=== PATIENT | male | born 1945 | race Caucasian/White ===

== ENCOUNTER 2017-12-18 13:55 | Inpatient (IN) | payer OTHER, MEDICAID ==
[2017-12-18] MEDS: ASPIRIN 81 MG TAB PO (14:18)
[2017-12-18] MEDS: NITROGLYCERIN (SL) 0.4 MG TAB SL ×3 (14:19→17:01)
[2017-12-18 14:26] LABS: ADD MAN DIFF? NO
[2017-12-18 14:27] LABS: BASOPHILS % 0.4 % (0.0-2.0); EOSINOPHILS # 0.2 10^3/ul (0.0-0.5); EOSINOPHILS % 3.2 % (0.0-7.0); HEMATOCRIT 34.4 % (42.0-52.0); HEMOGLOBIN 11.8 g/dl (14.0-18.0); LYMPHOCYTES # 2.2 10^3/ul (0.8-2.9); LYMPHOCYTES % 39.3 % (15.0-51.0); MEAN CORPUSCULAR HEMOGLOBIN 31.7 pg (29.0-33.0); MEAN CORPUSCULAR HGB CONC 34.3 g/dl (32.0-37.0); MEAN CORPUSCULAR VOLUME 92.5 fl (82.0-101.0); MEAN PLATELET VOLUME 10.3 fl (7.4-10.4); MONOCYTE # 0.5 10^3/ul (0.3-0.9); MONOCYTES % 8.2 % (0.0-11.0); NEUTROPHIL # 2.8 10^3/ul (1.6-7.5); NEUTROPHILS % 48.7 % (39.0-77.0); PLATELET COUNT 193 10^3/UL (140-415); RED BLOOD COUNT 3.72 10^6/ul (4.70-6.10); RED CELL DISTRIBUTION WIDTH 12.9 % (11.5-14.5)
[2017-12-18 14:27] LABS: WHITE BLOOD COUNT 5.7 10^3/ul (4.8-10.8)
[2017-12-18 14:46] LABS: ANION GAP 19 (8-16); BLOOD UREA NITROGEN 25 mg/dl (7-20); CALCIUM 9.4 mg/dl (8.4-10.2); CARBON DIOXIDE 24 mmol/L (21-31); CHLORIDE 102 mmol/L (97-110); CREATININE 0.99 mg/dl (0.61-1.24); GLUCOSE 100 mg/dl (70-220); POTASSIUM 3.8 mmol/L (3.5-5.1); SODIUM 141 mmol/L (135-144)
[2017-12-18 14:58] LABS: TROPONIN-I < 0.012 ng/ml (0.00-0.12)
[2017-12-18] MEDS: SOD CHLORIDE 0.9% 1,000 ML IV (15:49)
[2017-12-18] MEDS ORDERED: ACETAMINOPHEN 325 MG TAB PO (16:30)
[2017-12-18] MEDS ORDERED: ONDANSETRON 4 MG INJ IV (16:30)
[2017-12-18] MEDS ORDERED: NITROGLYCERIN (SL) 0.4 MG TAB SL (16:30)
[2017-12-18] MEDS ORDERED: NACL 0.9% 3 ML SYG IV (16:30)
[2017-12-18] MEDS ORDERED: HYDROmorphONE 0.5 MG/0.5 ML SYG IV (16:30)
[2017-12-18] MEDS: Discontinue current oral sulfonylureas (glyburide, glipizide, and/or glimepiride) prior to XX (17:00)
[2017-12-18] MEDS: HYPOGLYCEMIA PROTOCOL when Glucose is <70 mg/dL or symptomatic <90 mg/dL. XX (17:00)
[2017-12-18] MEDS ORDERED: ALBUTEROL/IPRATROPIUM (NEB) 3 ML AMP HHN (17:00)
[2017-12-18] MEDS ORDERED: NON-FORMULARY/PATIENT OWN MED (Temazepam* 30 MG) PO (17:00)
[2017-12-18] MEDS ORDERED: LORAZEPAM 0.5 MG TAB PO (17:00)
[2017-12-18] MEDS ORDERED: GLUCAGON 1 MG INJ IM (17:30)
[2017-12-18] MEDS ORDERED: GLUCOSE GEL 15 GRAM TUBE BUCCAL (17:30)
[2017-12-18] MEDS ORDERED: DEXTROSE 50% 50 ML SYRINGE IV ×2 (17:30)
[2017-12-18] MEDS ORDERED: GLUCOSE GEL 15 GRAM TUBE PO ×2 (17:30)
[2017-12-18] MEDS: NITROGLYCERIN 50 MG/D5W (PMX) 250 ML IV (17:34)
[2017-12-18] MEDS: INSULIN ASPART [NOVOLOG] 3 ML PEN SC ×2 (18:00→22:40)
[2017-12-18] MEDS: ALBUTEROL/IPRATROPIUM (NEB) 3 ML AMP HHN (19:42)
[2017-12-18] MEDS ORDERED: LIDOCAINE/MYLANTA 40 ML BTL (20:05)
[2017-12-18] MEDS: LIDOCAINE/MYLANTA 40 ML BTL PO (20:32)
[2017-12-18] MEDS: FAMOTIDINE 20 MG INJ IV (22:26)
[2017-12-18] MEDS: ATORVASTATIN 80 MG TAB PO (22:27)
[2017-12-18] MEDS: RISPERIDONE 1 MG TAB PO (22:27)
[2017-12-18] MEDS: DONEPEZIL 10 MG TAB PO (22:28)
[2017-12-18] MEDS: BISACODYL (EC) 5 MG TAB PO (22:28)
[2017-12-18] MEDS: SUCRALFATE (100 MG/ML) 10ML CUP PO (22:28)
[2017-12-18] MEDS: MOMETASONE 0.24 GM INHALER INH (22:32)
[2017-12-18] MEDS: HEPARIN 5,000 UNIT/0.5 ML VIAL SC (22:36)
[2017-12-18] MEDS: DOCUSATE SODIUM 100 MG CAP PO (22:40)
[2017-12-18 23:34] LABS: CREATINE KINASE 49 IU/L (23-200)
[2017-12-18 23:47] LABS: CK INDEX 2.6
[2017-12-18 23:49] LABS: CK-MB 1.26 ng/ml (0.0-2.4); TROPONIN-I < 0.012 ng/ml (0.00-0.12)
[2017-12-19] MEDS: ACCU-CHEK XX (01:32)
[2017-12-19] MEDS: NITROGLYCERIN (SL) 0.4 MG TAB SL ×2 (05:07→05:15)
[2017-12-19] MEDS: HEPARIN 5,000 UNIT/0.5 ML VIAL SC ×2 (05:10→13:11)
[2017-12-19] MEDS: HYDROmorphONE 2 MG TAB PO (05:14)
[2017-12-19] MEDS: morphine 2 MG INJ IV (05:37)
[2017-12-19] MEDS: LORAZEPAM 0.5 MG TAB PO ×2 (06:24→16:54)
[2017-12-19] MEDS: INSULIN ASPART [NOVOLOG] 3 ML PEN SC ×4 (08:00→21:00)
[2017-12-19] MEDS: ALBUTEROL/IPRATROPIUM (NEB) 3 ML AMP HHN ×2 (08:30→20:58)
[2017-12-19] MEDS: DOCUSATE SODIUM 100 MG CAP PO ×2 (08:39→21:00)
[2017-12-19] MEDS: BENAZEPRIL 10 MG TAB PO (08:39)
[2017-12-19] MEDS: ASPIRIN 81 MG TAB PO (08:40)
[2017-12-19] MEDS: FAMOTIDINE 20 MG INJ IV ×2 (08:40→21:00)
[2017-12-19] MEDS: HYDROCODONE/APAP (5/325) TAB PO ×2 (08:40→13:03)
[2017-12-19] MEDS: MOMETASONE 0.24 GM INHALER INH (08:40)
[2017-12-19 08:43] LABS: ADD MAN DIFF? NO
[2017-12-19 08:47] LABS: BASOPHILS % 0.4 % (0.0-2.0); EOSINOPHILS # 0.1 10^3/ul (0.0-0.5); EOSINOPHILS % 1.8 % (0.0-7.0); HEMATOCRIT 33.4 % (42.0-52.0); HEMOGLOBIN 11.6 g/dl (14.0-18.0); LYMPHOCYTES # 1.7 10^3/ul (0.8-2.9); LYMPHOCYTES % 24.3 % (15.0-51.0); MEAN CORPUSCULAR HGB CONC 34.7 g/dl (32.0-37.0); MEAN PLATELET VOLUME 10.4 fl (7.4-10.4); MONOCYTE # 0.5 10^3/ul (0.3-0.9); MONOCYTES % 6.9 % (0.0-11.0); NEUTROPHIL # 4.7 10^3/ul (1.6-7.5); NEUTROPHILS % 66.3 % (39.0-77.0); PLATELET COUNT 163 10^3/UL (140-415); RED BLOOD COUNT 3.63 10^6/ul (4.70-6.10); RED CELL DISTRIBUTION WIDTH 12.6 % (11.5-14.5)
[2017-12-19 08:47] LABS: WHITE BLOOD COUNT 7.2 10^3/ul (4.8-10.8)
[2017-12-19 09:10] LABS: ALANINE AMINOTRANSFERASE 32 IU/L (13-69); ALBUMIN 3.7 g/dl (3.3-4.9); ALBUMIN/GLOBULIN RATIO 1.68; ALKALINE PHOSPHATASE 39 IU/L (42-121); ANION GAP 14 (8-16); ASPARTATE AMINO TRANSFERASE 18 IU/L (15-46); BILIRUBIN,INDIRECT 0.6 mg/dl (0-1.1); BILIRUBIN,TOTAL 0.6 mg/dl (0.2-1.3); BLOOD UREA NITROGEN 24 mg/dl (7-20); CALCIUM 8.8 mg/dl (8.4-10.2); CARBON DIOXIDE 25 mmol/L (21-31); CHLORIDE 105 mmol/L (97-110); CHOL/HDL RATIO 5.5 RATIO; CHOLESTEROL 211 mg/dl (100-200); CREATININE 0.99 mg/dl (0.61-1.24); GLUCOSE 110 mg/dl (70-220); HDL CHOLESTEROL 38 mg/dl (31-75); LDL CHOLESTEROL,CALCULATED 147 mg/dl; POTASSIUM 4.1 mmol/L (3.5-5.1); SODIUM 140 mmol/L (135-144); TOTAL PROTEIN 5.9 g/dl (6.1-8.1); TRIGLYCERIDES 131 mg/dl (0-149)
[2017-12-19 09:11] LABS: CREATINE KINASE 40 IU/L (23-200)
[2017-12-19 09:20] LABS: CK INDEX 2.7
[2017-12-19 09:21] LABS: HEMOGLOBIN A1C 5.2 % (0-5.9)
[2017-12-19 09:24] LABS: CK-MB 1.07 ng/ml (0.0-2.4); TROPONIN-I < 0.012 ng/ml (0.00-0.12)
[2017-12-19] MEDS: SUCRALFATE (100 MG/ML) 10ML CUP PO ×4 (09:41→21:00)
[2017-12-19] MEDS: PANTOPRAZOLE (EC) 40 MG TAB PO (09:41)
[2017-12-19] MEDS: ATORVASTATIN 80 MG TAB PO (21:00)
[2017-12-19] MEDS: DONEPEZIL 10 MG TAB PO (21:00)
[2017-12-19] MEDS: RISPERIDONE 1 MG TAB PO (21:00)
[2017-12-20] MEDS: ACCU-CHEK XX (02:00)
[2017-12-20] MEDS: PANTOPRAZOLE (EC) 40 MG TAB PO (05:26)
[2017-12-20] MEDS: INSULIN ASPART [NOVOLOG] 3 ML PEN SC ×2 (08:00→11:48)
[2017-12-20] MEDS: FAMOTIDINE 20 MG INJ IV (08:38)
[2017-12-20] MEDS: SUCRALFATE (100 MG/ML) 10ML CUP PO ×4 (08:38→20:19)
[2017-12-20] MEDS: DOCUSATE SODIUM 100 MG CAP PO ×2 (08:39→20:19)
[2017-12-20] MEDS: HYDROCODONE/APAP (5/325) TAB PO ×2 (08:39→12:44)
[2017-12-20] MEDS: BENAZEPRIL 10 MG TAB PO (08:39)
[2017-12-20] MEDS: ASPIRIN 81 MG TAB PO (08:39)
[2017-12-20] MEDS: MOMETASONE 0.24 GM INHALER INH (08:39)
[2017-12-20] MEDS: ENOXAPARIN 40 MG/0.4 ML SYG SC (08:48)
[2017-12-20] MEDS: ALBUTEROL/IPRATROPIUM (NEB) 3 ML AMP HHN ×3 (09:54→20:00)
[2017-12-20] MEDS: RISPERIDONE 1 MG TAB PO (20:19)
[2017-12-20] MEDS: ATORVASTATIN 80 MG TAB PO (20:19)
[2017-12-21] MEDS: ACCU-CHEK XX (02:00)
[2017-12-21] MEDS: PANTOPRAZOLE (EC) 40 MG TAB PO (06:06)
[2017-12-21] MEDS: ALBUTEROL/IPRATROPIUM (NEB) 3 ML AMP HHN ×2 (08:00→08:28)
[2017-12-21] MEDS: ASPIRIN 81 MG TAB PO (08:21)
[2017-12-21] MEDS: HYDROCODONE/APAP (5/325) TAB PO (08:21)
[2017-12-21] MEDS: BENAZEPRIL 10 MG TAB PO (08:24)
[2017-12-21] MEDS: SUCRALFATE (100 MG/ML) 10ML CUP PO (08:25)
[2017-12-21] MEDS: DOCUSATE SODIUM 100 MG CAP PO (08:25)
[2017-12-21] MEDS: ENOXAPARIN 40 MG/0.4 ML SYG SC (08:54)
[2017-12-21] MEDS: INFLUENZA VIRUS VACCINE 0.5 ML (DISPENSING) IM* (09:00)
== END 2017-12-21 11:32 | DRG 206 ==
LOC: MS4 16:41 → E/R 13:55
DX: M94.0 Chondrocostal junction syndrome [Tietze] (principal); E11.8 Type 2 diabetes mellitus with unspecified complications; J44.9 Chronic obstructive pulmonary disease, unspecified; E11.9 Type 2 diabetes mellitus without complications; I10 Essential (primary) hypertension; F39 Unspecified mood [affective] disorder; K21.9 Gastro-esophageal reflux disease without esophagitis; Z95.1 Presence of aortocoronary bypass graft
CPT/HCPCS: 36415; 71045; 80048; 80053; 80061; 82550; 82553; 82962; 83036; 83735; 84443; 84484; 85025; 87081; 90686; 93005; 93306; 94640; 94664; 96365; 96372; 96375; 99291-25

== ENCOUNTER 2017-12-24 13:24 | Emergency (ER) | payer OTHER, MEDICAID ==
[2017-12-24 14:33] LABS: ADD MAN DIFF? NO
[2017-12-24 14:34] LABS: WHITE BLOOD COUNT 5.9 10^3/ul (4.8-10.8)
[2017-12-24 14:34] LABS: BASOPHILS % 0.3 % (0.0-2.0); EOSINOPHILS # 0.3 10^3/ul (0.0-0.5); EOSINOPHILS % 4.2 % (0.0-7.0); HEMATOCRIT 36.1 % (42.0-52.0); HEMOGLOBIN 12.8 g/dl (14.0-18.0); LYMPHOCYTES # 2.5 10^3/ul (0.8-2.9); LYMPHOCYTES % 42.4 % (15.0-51.0); MEAN CORPUSCULAR HEMOGLOBIN 31.9 pg (29.0-33.0); MEAN CORPUSCULAR HGB CONC 35.5 g/dl (32.0-37.0); MEAN PLATELET VOLUME 10.5 fl (7.4-10.4); MONOCYTE # 0.4 10^3/ul (0.3-0.9); MONOCYTES % 7.3 % (0.0-11.0); NEUTROPHIL # 2.7 10^3/ul (1.6-7.5); NEUTROPHILS % 45.5 % (39.0-77.0); PLATELET COUNT 187 10^3/UL (140-415); RED BLOOD COUNT 4.01 10^6/ul (4.70-6.10); RED CELL DISTRIBUTION WIDTH 12.6 % (11.5-14.5)
[2017-12-24 14:35] LABS: ADD UMIC NO; UR ASCORBIC ACID NEGATIVE (NEGATIVE); UR BILIRUBIN (Dip) NEGATIVE (NEGATIVE); UR BLOOD (Dip) NEGATIVE (NEGATIVE); UR CLARITY CLEAR (CLEAR); UR COLOR YELLOW (YELLOW); UR GLUCOSE (Dip) NEGATIVE (NEGATIVE); UR KETONES (Dip) NEGATIVE (NEGATIVE); UR LEUKOCYTE ESTERASE (Dip) NEGATIVE Leu/ul (NEGATIVE); UR NITRITE (Dip) NEGATIVE (NEGATIVE); UR TOTAL PROTEIN (Dip) NEGATIVE (NEGATIVE); UR UROBILINOGEN (Dip) 2+ mg/dL (NEGATIVE)
[2017-12-24 14:52] LABS: ALANINE AMINOTRANSFERASE 34 IU/L (13-69); ALBUMIN 4.4 g/dl (3.3-4.9); ALBUMIN/GLOBULIN RATIO 1.57; ALKALINE PHOSPHATASE 45 IU/L (42-121); ANION GAP 13 (8-16); ASPARTATE AMINO TRANSFERASE 23 IU/L (15-46); BILIRUBIN,INDIRECT 0.9 mg/dl (0-1.1); BILIRUBIN,TOTAL 0.9 mg/dl (0.2-1.3); BLOOD UREA NITROGEN 25 mg/dl (7-20); CALCIUM 9.4 mg/dl (8.4-10.2); CARBON DIOXIDE 24 mmol/L (21-31); CHLORIDE 106 mmol/L (97-110); CREATININE 0.99 mg/dl (0.61-1.24); GLUCOSE 83 mg/dl (70-220); POTASSIUM 3.8 mmol/L (3.5-5.1); SODIUM 139 mmol/L (135-144); TOTAL PROTEIN 7.2 g/dl (6.1-8.1)
[2017-12-24 14:53] LABS: ACETAMINOPHEN < 10.0 ug/ml (10.0-30.0); ETHANOL < 10.0 mg/dl; SALICYLATE < 1.0 mg/dl (5.0-30.0)
[2017-12-24 14:57] LABS: AMPHETAMINE/METHAMPHETAMINE Negative (NEGATIVE); BENZODIAZEPINES Positive (NEGATIVE); OPIATES Negative (NEGATIVE)
[2017-12-24 14:58] LABS: BARBITURATES Negative (NEGATIVE); CANNABINOIDS Negative (NEGATIVE); COCAINE Negative (NEGATIVE)
[2017-12-24] MEDS: LORAZEPAM 0.5 MG TAB PO (17:20)
[2017-12-24] MEDS: LORAZEPAM 1 MG TAB PO (21:57)
[2017-12-26] MEDS: HYDROCODONE/APAP (5/325) TAB PO (00:04)
[2017-12-26] MEDS: SERTRALINE 50 MG TAB PO (12:36)
== END 2017-12-26 20:52 ==
LOC: E/R 13:24
DX: R45.851 Suicidal ideations (principal); I10 Essential (primary) hypertension; D64.9 Anemia, unspecified; E11.9 Type 2 diabetes mellitus without complications; I25.10 Atherosclerotic heart disease of native coronary artery without angina pectoris; J44.9 Chronic obstructive pulmonary disease, unspecified; Z79.84 Long term (current) use of oral hypoglycemic drugs; Z95.1 Presence of aortocoronary bypass graft
CPT/HCPCS: 36415; 80053; 80306; 80307; 81003; 85025; 93005; 99285-25